=== PATIENT | female | born 1995 | race Caucasian/White ===

== ENCOUNTER 2021-05-07 16:37 | Inpatient (IN) | payer OTHER ==
[2021-05-07] MEDS ORDERED: TERBUTALINE SULFATE 1 MG/1 ML VIAL SQ ONE ×2 (19:00→19:06)
[2021-05-07] MEDS ORDERED: DEXTROSE 5%-LACTATED RINGERS 500 ML IV ONE ×2 (19:00→20:00)
[2021-05-07] MEDS ORDERED: NIFEdipine 10 MG CAPSULE (FP) ONE (21:39)
[2021-05-07] MEDS ORDERED: NIFEdipine 10 MG CAPSULE (FP) PO ONE (22:00)
[2021-05-07 22:32] LABS: BASO % 0.3 % (0-2.0); EOS % 0.3 % (0-4.5); HEMATOCRIT 26.9 % (32.4-45.2); HEMOGLOBIN 8.7 GM/dL (10.7-15.3); LYMPH % 11.9 % (8-40); MCHC 32.5 g/dl (32.0-36.0); MEAN CELL VOLUME 77.1 fl (80-96); MEAN PLT VOLUME 6.9 fl (7.5-11.1); MONO % 10.1 % (3.8-10.2); NEUT % 77.4 % (42.8-82.8); PLATELET COUNT 262 10^3/uL (134-434); RBC 3.49 M/mm3 (3.60-5.2); RDW 16.4 % (11.6-15.6); WHITE BLOOD COUNT 15.2 K/mm3 (4.0-10.0)
[2021-05-07 22:39] LABS: INR 1.08 (0.83-1.09)
[2021-05-07 22:41] LABS: ACTIVATED PTT 24.9 SECONDS (25.2-36.5)
[2021-05-07] MEDS ORDERED: DEXTROSE 5%-LACTATED RINGERS 1,000 ML IV SCH (22:45)
[2021-05-07 22:59] LABS: CREATININE 0.5 mg/dL (0.55-1.3)
[2021-05-07 23:20] VITALS: BMI 34.3
[2021-05-08] MEDS ORDERED: NIFEdipine 10 MG CAPSULE (FP) PO SCH ×2 (06:00→22:15)
[2021-05-08] MEDS ORDERED: NIFEdipine 10 MG CAPSULE (FP) ONE (06:04)
[2021-05-08] MEDS: NIFEdipine 10 MG CAPSULE (FP) PO SCH ×2 (13:39→20:30)
[2021-05-08] MEDS ORDERED: ZOLPIDEM TARTRATE 5 MG TABLET PO PRN (21:28)
[2021-05-08] MEDS ORDERED: NITROFURANTOIN MACROCRYSTAL 50 MG CAPSULE (FP) PO SCH (21:30)
[2021-05-08 21:53] LABS: PH,URINE 7.5 (5.0-8.0); URINE APPEARANCE CLEAR; URINE BILIRUBIN NEGATIVE (NEGATIVE); URINE COLOR YELLOW; URINE GLUCOSE (UA) NEGATIVE (NEGATIVE); URINE KETONE NEGATIVE (NEGATIVE); URINE LEUK ESTERASE NEGATIVE (NEGATIVE); URINE NITRITE NEGATIVE (NEGATIVE); URINE PROTEIN NEGATIVE (NEGATIVE)
[2021-05-09] MEDS: NIFEdipine 10 MG CAPSULE (FP) PO SCH ×3 (01:03→11:52)
[2021-05-09] MEDS ORDERED: ACETAMINOPHEN 325 MG TABLET (FP) PO STA (08:22)
[2021-05-09] MEDS ORDERED: NITROFURANTOIN MACROCRYSTAL 50 MG CAPSULE (FP) PO ONE (09:15)
[2021-05-09 12:17] VITALS: BP 132/74; PULSE 112; TEMP 98.4
== END 2021-05-09 13:00 | disposition home or self-care (01) | DRG 565 ==
LOC: JDEL 16:37 → JLDR 21:50 → J3W 05-08 08:10
PROVIDERS: ADMIT Specialist; ATTEND Specialist
DX: O47.03 False labor before 37 completed weeks of gestation, third trimester (principal); Z3A.32 32 weeks gestation of pregnancy
CPT/HCPCS: 36415; 59025; 80048; 81003; 85025; 85610; 85730; 86780; 86850; 86900; 86901; 87086; 96372; C9803; G0463-25; U0003; U0005

== ENCOUNTER 2021-05-31 17:10 | Inpatient (IN) | payer OTHER ==
[2021-05-31] MEDS ORDERED: DEXTROSE 5%-LACTATED RINGERS 1,000 ML IV SCH (18:30)
[2021-05-31 18:34] VITALS: TEMP 98.2; BMI 33.5
[2021-05-31] MEDS ORDERED: NIFEdipine 10 MG CAPSULE (FP) ONE (19:58)
[2021-05-31] MEDS ORDERED: NIFEdipine 10 MG CAPSULE (FP) PO ONE (20:00)
[2021-05-31 20:36] LABS: BASO % 0.1 % (0-2.0); EOS % 0.7 % (0-4.5); HEMATOCRIT 26.9 % (32.4-45.2); LYMPH % 16.1 % (8-40); MCH 25.6 pg (25.7-33.7); MCHC 33.6 g/dl (32.0-36.0); MEAN CELL VOLUME 76.3 fl (80-96); MEAN PLT VOLUME 7.1 fl (7.5-11.1); MONO % 5.2 % (3.8-10.2); NEUT % 77.9 % (42.8-82.8); PLATELET COUNT 243 10^3/uL (134-434); RBC 3.53 M/mm3 (3.60-5.2); RDW 17.7 % (11.6-15.6); WHITE BLOOD COUNT 10.2 K/mm3 (4.0-10.0)
[2021-05-31 20:58] LABS: INR 1.03 (0.83-1.09); PROTHROMBIN TIME (PATIENT) 12.7 SEC (9.7-13.0)
[2021-05-31 21:01] LABS: ACTIVATED PTT 26.2 SECONDS (25.2-36.5)
[2021-05-31 21:21] LABS: CALCIUM 7.9 mg/dL (8.5-10.1)
[2021-05-31 21:22] LABS: BLOOD UREA NITROGEN 6.1 mg/dL (7-18)
[2021-05-31 21:25] LABS: CREATININE 0.6 mg/dL (0.55-1.3)
[2021-06-01 00:14] VITALS: BP 136/87; PULSE 90
== END 2021-05-31 22:20 | disposition home or self-care (01) | DRG 563 ==
LOC: JDEL 17:10 → JLDR 17:15
PROVIDERS: ADMIT Specialist; ATTEND Specialist
DX: O60.03 Preterm labor without delivery, third trimester (principal); Z3A.35 35 weeks gestation of pregnancy
CPT/HCPCS: 36415; 80048; 85025; 85610; 85730; 86780; 86850; 86900; 86901

== ENCOUNTER 2021-06-06 10:00 | Inpatient (IN) | payer OTHER ==
[2021-06-06] MEDS ORDERED: ELECTROLYTE-148 SOLN 1,000 ML IV SCH (10:45)
[2021-06-06 11:05] VITALS: BMI 34.3
[2021-06-06] MEDS ORDERED: OXYTOCIN 30 UNITS in 0.9% NS 30 UNIT/500 ML INFUS.BAG IVPB SCH (13:00)
[2021-06-06] MEDS ORDERED: FENTANYL/BUPIVACAINE/NS/PF - PCEA - 50 ML DISP.SYRIN EP ONE ×2 (14:16→19:12)
[2021-06-06] MEDS ORDERED: BUPIVACAINE HCL/PF 0.25% (2.5MG/ML) 10 ML VIAL ONE ×2 (14:37→18:33)
[2021-06-06] MEDS ORDERED: NALOXONE HCL 0.4 MG/ML VIAL IVPUSH PRN (14:58)
[2021-06-06] MEDS ORDERED: FENTANYL/BUPIVACAINE/NS/PF - PCEA - 50 ML DISP.SYRIN EP SCH (15:00)
[2021-06-06] MEDS ORDERED: SODIUM CHLORIDE 100 ML IVPB ONE (18:33)
[2021-06-06] MEDS ORDERED: PCA PUMP NR ONE ×2 (18:39→19:11)
[2021-06-06] MEDS ORDERED: OXYTOCIN 20 UNITS in 0.9% NS 20 UNIT/1,000 ML INFUS.BAG IV ONE (20:44)
[2021-06-06] MEDS ORDERED: LIDOCAINE HCL 1% PRESERVATIVE FREE - 30ML VIAL ONE (22:09)
[2021-06-06] MEDS ORDERED: BENZOCAINE 28 GM HEMORRHOIDAL OINTMENT TP PRN (22:34)
[2021-06-06] MEDS ORDERED: METHYLERGONOVINE MALEATE 0.2 MG/1 ML AMP IM PRN (22:34)
[2021-06-06] MEDS ORDERED: WITCH HAZEL 50% (TUCKS) 40 PAD/JAR PAD TP PRN (22:34)
[2021-06-06] MEDS ORDERED: BENZOCAINE 20% 57 GM BOTTLE TP PRN (22:34)
[2021-06-06] MEDS ORDERED: BISACODYL 10 MG SUPP.RECT RC PRN (22:34)
[2021-06-06] MEDS ORDERED: OXYTOCIN 20 UNITS in 0.9% NS 20 UNIT/1,000 ML INFUS.BAG IV SCH (22:45)
[2021-06-06] MEDS ORDERED: IBUPROFEN 600 MG TABLET (FP) PO ONE (23:52)
[2021-06-06] MEDS ORDERED: ACETAMINOPHEN 325 MG TABLET (FP) ONE (23:53)
[2021-06-07 08:39] LABS: BASO % 0.2 % (0-2.0); EOS % 0.3 % (0-4.5); HEMATOCRIT 24.2 % (32.4-45.2); HEMOGLOBIN 7.9 GM/dL (10.7-15.3); LYMPH % 10.1 % (8-40); MCH 25.1 pg (25.7-33.7); MCHC 32.5 g/dl (32.0-36.0); MEAN CELL VOLUME 77.3 fl (80-96); MEAN PLT VOLUME 7.5 fl (7.5-11.1); MONO % 6.5 % (3.8-10.2); NEUT % 82.9 % (42.8-82.8); PLATELET COUNT 217 10^3/uL (134-434); RBC 3.13 M/mm3 (3.60-5.2); RDW 17.6 % (11.6-15.6); WHITE BLOOD COUNT 13.8 K/mm3 (4.0-10.0)
[2021-06-07] MEDS: IBUPROFEN 600 MG TABLET (FP) PO PRN ×3 (09:50→21:10)
[2021-06-07] MEDS: ACETAMINOPHEN 325 MG TABLET (FP) PO PRN ×3 (09:50→21:10)
[2021-06-07] MEDS ORDERED: SENNOSIDES/DOCUSATE COMBO (SENNA PLUS) TABLET (UD) PO PRN (22:00)
[2021-06-08 10:47] VITALS: BP 107/67; PULSE 91; TEMP 98.2
[2021-06-08] MEDS ORDERED: BISACODYL 10 MG SUPP.RECT RC PRN (11:11)
[2021-06-08] MEDS: ACETAMINOPHEN 325 MG TABLET (FP) PO PRN (18:01)
== END 2021-06-08 18:05 | disposition home or self-care (01) | DRG 560 ==
LOC: JLDR 10:00 → J3W 06-07 00:09 → UNDODISIN 06-08 13:45
PROVIDERS: ADMIT Specialist; ATTEND Specialist
PROC: 10E0XZZ Delivery of Products of Conception, External Approach (ICD-10-PCS; principal; 2021-06-06)
PROC: 0W8NXZZ Division of Female Perineum, External Approach (ICD-10-PCS; 2021-06-06)
DX: O60.14X0 Preterm labor third trimester with preterm delivery third trimester, not applicable or unspecified (principal); Z3A.36 36 weeks gestation of pregnancy; Z37.0 Single live birth
CPT/HCPCS: 36415; 59409; 85025; C9803; U0003; U0005